=== PATIENT | male | born 1985 | race African-American/Black ===

== ENCOUNTER 2017-05-19 22:52 | Emergency (ER) | payer BC ==
[~2017-05-19] VITALS: Ht 177.8 cm; Wt 86.0 kg
[2017-05-20] MEDS ORDERED: KETOROLAC 30MG/ML VIAL IM ONE (00:30)
[2017-05-20] MEDS ORDERED: METHOCARBAMOL 500MG TABLET PO ONE (00:30)
[2017-05-20 00:35] VITALS: BP 141/100
== END 2017-05-20 02:15 | disposition home or self-care (01) ==
LOC: ER 23:14
DX: S39.012A Strain of muscle, fascia and tendon of lower back, initial encounter (principal); F17.200 Nicotine dependence, unspecified, uncomplicated; V43.52XA Car driver injured in collision with other type car in traffic accident, initial encounter; Y93.89 Activity, other specified; Y92.89 Other specified places as the place of occurrence of the external cause; Y99.8 Other external cause status
CPT/HCPCS: 72100; 96372; 99284; J1885; Z7610